=== PATIENT | female | born 1985 | race Asian ===

== ENCOUNTER 2025-08-03 08:54 | Emergency (ER) | payer OTHER ==
[~2025-08-03] VITALS: Ht 160 cm; Wt 93.2 kg
[2025-08-03 09:11] VITALS: BP 140/89; PULSE 90; RESP 18; TEMP 98.4; O2SAT 99
[2025-08-03] MEDS ORDERED: LISI-894 PO (09:15)
[2025-08-03] MEDS ORDERED: AMLO-257 PO (09:15)
[2025-08-03] MEDS ORDERED: IBUP-1492 PO (12:15)
[2025-08-03] MEDS ORDERED: PENI500T2 PO (12:15)
== END 2025-08-03 13:01 | disposition home or self-care (01) ==
LOC: EMS 08:54
DX: K04.7 Periapical abscess without sinus (principal); J45.909 Unspecified asthma, uncomplicated; I10 Essential (primary) hypertension; Z98.890 Other specified postprocedural states; Z79.899 Other long term (current) drug therapy
CPT/HCPCS: 99283; Z7502